=== PATIENT | female | born 1980 | race Caucasian/White ===

== ENCOUNTER 2017-03-16 23:04 | Emergency (ER) | payer MEDICAID ==
[2016-04-01 12:54] VITALS: Ht 172.7 cm; Wt 79.4 kg
[~2017-03-16] VITALS: Ht 172.7 cm; Wt 79.4 kg
[~2017-03-16 23:04] MED LIST: ACET-1718 PO; ACET-1966 PO; AMOX-362 PO; AMOX-559 PO; CEP500 PO; DOCU-416 PO; HYDR-3503 PO; HYDR-4309 PO; IBU600 PO; IBUP800T37 PO; LOR5/325 PO; METH-543 PO; MULT-977 PO; OMEP-125 PO; ONDA4TAB PO; ONDA4TAB97 PO; OXYC-865 PO; PAN40 PO; PANT40TA65 PO; PEN250 PO; PREN-127 PO; PROM-100 PO; PROM-110 PO; PROP160C29 PO; SUC1 PO; TUSSIONEX PO; ZEGRID; albuterol inhaler PUFF; prednisone
--- NOTE | 2017-03-16 23:05 | ER Report ---
History and Physical Time Seen By MD: 23:04 HPI/ROS CHIEF COMPLAINT: Severe right lower dental pain HISTORY OF PRESENT ILLNESS: 37-year-old female presents to the ER complaining of severe right dental pain. She shows a tooth at position #31 is a large dental carry. She notes 10 out of 10 throbbing pain for the last 2 days. She' s been taking excessive amounts of ibuprofen without improvement. Patient notes some difficulty swallowing. She denies throat swelling. She notes no difficulty breathing Allergies: Coded Allergies: clindamycin (Verified Allergy, Severe, SWELLING, 03/16/17) Home Meds Active Scripts Oxycodone Hcl/Acetaminophen (PERCOCET 5-325 MG TABLET) 1 Each Tablet, 1 EACH PO Q4-6H Y for PAIN, #10 Prov:ROMEL ROE DO 03/16/17 Amoxicillin (AMOXICILLIN) 500 Mg Capsule, 1 CAP PO TID for infection, #15 CAPSULE Prov:ROMEL ROE DO 03/16/17 Discontinued Reported Medications Vits W-Ca,Fe,Fa(<1MG) ( VITAMINS) 1 Each Tablet, 1 EACH PO DAILY, TAB 10/24/15 Discontinued Scripts Pantoprazole Sodium (PANTOPRAZOLE SODIUM) 40 Mg Tablet.dr, 40 MG PO QDAY, #30 TAB.SR 0 Refills Prov:NANCY STARK MD 08/13/16 Ondansetron Hcl (ZOFRAN) 4 Mg Tablet, 4 MG PO Q8H for Nausea, #15 TAB 0 Refills Prov:NANCY STARK MD 08/13/16 Oxycodone Hcl/Acetaminophen (PERCOCET 5-325 MG TABLET) 1 Each Tablet, 1 EACH PO Q4H for PAIN, #20 TAB 0 Refills Prov:NANCY STARK MD 08/13/16 Docusate Sodium (COLACE) 100 Mg Capsule, 100 MG PO BID Y for constipation, #90 CAPSULE 2 Refills Prov:MUNIRA ZHENG MD 04/02/16 Ibuprofen (IBUPROFEN) 800 Mg Tablet, 1 TAB PO Q8H Y for pain, #30 TAB 0 Refills TAKE WITH FOOD EVERY 8 HOURS Prov:MUNIRA ZHENG MD 04/02/16 Acetaminophen With Codeine # 3 (ACETAMINOPHEN-COD #3 TABLET) 1 Each Tablet, 1-2 EACH PO Q4H Y for pain, #30 TAB 0 Refills Take 1-2 tablets as needed for pain no closer than every 4 hours. Prov:MUNIRA ZHENG MD 04/02/16 Past Medical/Surgical History Childbirth one year ago Reviewed Nurses Notes: Yes Old Medical Records Reviewed: Yes Hx Smoking: Yes Smoking Status: Former Smoker Exposure to Second Hand Smoke?: Yes Hx Substance Use Disorder: No Hx Alcohol Use: No Constitutional Vital Sign - Last 24 Hours 03/16/17 23:07 Temp 98.1 Pulse 77 Resp 16 B/P (MAP) 131/90 Pulse Ox 97 O2 Delivery Room Air Physical Exam Vital signs stable, afebrile, pulse ox normal General Appearance: The patient is alert, has no immediate need for airway protection and no current signs of toxicity. Moderate distress HEENT: Pupils equal and round no injection. TMs normal, TMJs nontender, examination of the oropharynx reveals a tooth at position #31 with a large dental carry. There is surrounding gum inflammation. There is no swelling of the cheek noted. Respiratory: Chest is non tender, lungs are clear to auscultation. Cardiac: regular rate and rhythm Musculoskeletal: Neck: Neck is supple and non tender. No induration and neck tissues lymphadenopathy noted Extremities have full range of motion and are non tender. Skin: No rashes or lesions. DIFFERENTIAL DIAGNOSIS: After history and physical exam differential diagnosis was considered for dental pain, tooth abscess, ostial myelitis of the jaw, parotiditis, toothache Medical Decision Making ED Course/Re-evaluation ED Course Patient was admitted to an examination room. H&P was done. The dental diagnoses was considered. On conical examination, patient appears to have a large dental carry. She'll be treated with amoxicillin. A limited supply of Percocet is provided for temporary pain relief. Patient's advised to restrict herself to 800 mg Motrin 3 times daily with food. He is advised to apply warm compresses to the area. She is given a list of local dentists and urged to have urgent follow-up. Decision to Disposition Date: Mar 16, 2017 Decision to Disposition Time: 23:17 Depart Departure Latest Vital Signs Vital Signs Date Time Temp Pulse Resp B/P (MAP) Pulse Ox O2 Delivery O2 Flow Rate FiO2 03/16/17 23:07 98.1 77 16 131/90 97 Room Air Impression: Primary Impression: Abscessed tooth Additional Impression: Toothache Condition: Improved Disposition: HOME OR SELF-CARE Referrals: DEJUAN ALVAREZ MD (PCP) New Scripts Oxycodone Hcl/Acetaminophen (PERCOCET 5-325 MG TABLET) 1 Each Tablet 1 EACH PO Q4-6H Y for PAIN, #10 Prov: ROMEL ROE DO 03/16/17 Amoxicillin (AMOXICILLIN) 500 Mg Capsule 1 CAP PO TID for infection, #15 CAPSULE Prov: ROMEL ROE DO 03/16/17 Patient Instructions: Dental Abscess (ED) Additional Instructions: Take ibuprofen 200 mg 3 tablets 3 times a day with food Call and arrange follow-up with a dentist this week, a list of local dentists was provided Problem Qualifiers ROMEL ROE DO Mar 16, 2017 23:05
[2017-03-16 23:07] VITALS: BP 131/90
[2017-03-16] MEDS ORDERED: oxyCODONE/ACETAMIN 5/325MG TH 2 TAB/BOTTLE PO ONE (23:20)
[2017-03-16] MEDS ORDERED: OXYC-865 PO (23:20)
[2017-03-16] MEDS ORDERED: AMOXICILLIN 500 MG CAP PO ONE (23:20)
[2017-03-16] MEDS ORDERED: AMOX-362 PO (23:20)
== END 2017-03-16 23:28 | disposition home or self-care (01) ==
LOC: ER 23:27
DX: K04.7 Periapical abscess without sinus (principal)
CPT/HCPCS: 99282

== ENCOUNTER → 2018-03-30 | Outpatient (CLI) | payer MEDICAID ==
[2016-04-01 12:54] VITALS: BMI 30.1
[~2018-03-30] MED LIST changes: -HYDR-4309 PO; +HYDR-653 PO
== END ==
LOC: LAB 14:34
PROVIDERS: ATTEND Obstetrics & Gynecology
DX: N92.6 Irregular menstruation, unspecified (principal)
CPT/HCPCS: 36415; 84702